=== PATIENT | female | born 1960 | race African-American/Black ===

== ENCOUNTER 2022-03-27 04:25 | Observation (INO) | payer OTHER ==
[2022-03-27] MEDS ORDERED: ONDANSETRON 4 MG/2 ML VIAL IVPUSH ONE (05:33)
[2022-03-27] MEDS ORDERED: ONDANSETRON 4 MG/2 ML VIAL ONE (05:38)
[2022-03-27 06:15] LABS: BASO % 0.5 % (0-2.0); EOS % 1.3 % (0-4.5); HEMATOCRIT 38.1 % (32.4-45.2); HEMOGLOBIN 12.7 GM/dL (10.7-15.3); LYMPH % 45.1 % (8-40); MCH 26.7 pg (25.7-33.7); MCHC 33.2 g/dl (32.0-36.0); MEAN CELL VOLUME 80.2 fl (80-96); MEAN PLT VOLUME 7.9 fl (7.5-11.1); MONO % 8.2 % (3.8-10.2); NEUT % 44.9 % (42.8-82.8); PLATELET COUNT 188 10^3/uL (134-434); RBC 4.76 M/mm3 (3.60-5.2); RDW 15.4 % (11.6-15.6); WHITE BLOOD COUNT 5.1 K/mm3 (4.0-10.0)
[2022-03-27 06:39] LABS: CALCIUM 9.9 mg/dL (8.5-10.1)
[2022-03-27 06:40] LABS: ALBUMIN 4.1 g/dl (3.4-5.0); MAGNESIUM 1.7 mg/dL (1.8-2.4)
[2022-03-27 06:43] LABS: CREATININE 0.7 mg/dL (0.55-1.3)
[2022-03-27 06:44] LABS: BILIRUBIN,TOTAL 0.4 mg/dL (0.2-1)
[2022-03-27] MEDS ORDERED: MAGNESIUM SULF 50% (8.12 MEQ/2 ML-1 GM VIAL) IVPB ONE ×2 (06:47→07:43)
[2022-03-27] MEDS ORDERED: MAGNESIUM SULFATE IN WATER 2 GM/50 ML IVPB IVPB ONE (06:50)
[2022-03-27] MEDS ORDERED: MECLIZINE HCL 25 MG TABLET (FP) PO ONE (08:02)
[2022-03-27] MEDS ORDERED: MECLIZINE HCL 25 MG TABLET (FP) ONE (08:05)
[2022-03-27] MEDS ORDERED: MECLIZINE HCL 25 MG TABLET (FP) PO PRN (12:01)
[2022-03-27] MEDS: ENOXAPARIN NA (PORCINE) 40 MG/0.4 ML DISP.SYRIN SQ SCH (12:05)
[2022-03-27] MEDS ORDERED: LACTATED RINGERS SOLUTION 1,000 ML/1,000 ML INFUS.BAG IV SCH (12:15)
[2022-03-27] MEDS: INSULIN SLIDING SCALE (NOVOLOG) 1 VIAL SQ SCH (17:42)
[2022-03-27] MEDS ORDERED: INSULIN (LEVEMIR) 100 UNITS/ML UNITS SQ SCH (22:00)
[2022-03-28 01:19] VITALS: BMI 32.8
[2022-03-28 06:18] VITALS: RESP 18
[2022-03-28] MEDS: INSULIN SLIDING SCALE (NOVOLOG) 1 VIAL SQ SCH ×2 (06:39→12:22)
[2022-03-28 07:28] LABS: INR 1.08 (0.83-1.09); PROTHROMBIN TIME (PATIENT) 12.4 SEC (9.7-13.0)
[2022-03-28 07:29] LABS: BASO % 0.5 % (0-2.0); EOS % 2.9 % (0-4.5); HEMATOCRIT 37.9 % (32.4-45.2); HEMOGLOBIN 12.4 GM/dL (10.7-15.3); LYMPH % 45.8 % (8-40); MCH 26.6 pg (25.7-33.7); MCHC 32.7 g/dl (32.0-36.0); MEAN CELL VOLUME 81.1 fl (80-96); MEAN PLT VOLUME 7.7 fl (7.5-11.1); MONO % 8.6 % (3.8-10.2); NEUT % 42.2 % (42.8-82.8); PLATELET COUNT 187 10^3/uL (134-434); RBC 4.67 M/mm3 (3.60-5.2); RDW 15.8 % (11.6-15.6); WHITE BLOOD COUNT 4.3 K/mm3 (4.0-10.0)
[2022-03-28 07:31] LABS: ACTIVATED PTT 27.3 SECONDS (25.2-36.5)
[2022-03-28 07:52] LABS: ALBUMIN 3.8 g/dl (3.4-5.0); BLOOD UREA NITROGEN 12.9 mg/dL (7-18); MAGNESIUM 1.8 mg/dL (1.8-2.4)
[2022-03-28 07:55] LABS: CREATININE 0.8 mg/dL (0.55-1.3); PHOSPHOROUS 2.9 mg/dL (2.5-4.9)
[2022-03-28 07:57] LABS: BILIRUBIN,TOTAL 0.5 mg/dL (0.2-1); TOT PROT 7.3 g/dl (6.4-8.2)
[2022-03-28 08:00] LABS: CHOLESTEROL 116 mg/dL (50-200); TRIGLYCERIDES 79 mg/dL (0-150)
[2022-03-28 08:01] LABS: LDL CHOLESTEROL (ONLY SJRH) 44 mg/dL (5-100)
[2022-03-28 08:04] LABS: HDL CHOLESTEROL 63 mg/dL (40-60)
[2022-03-28] MEDS: ENOXAPARIN NA (PORCINE) 40 MG/0.4 ML DISP.SYRIN SQ SCH (10:11)
[2022-03-28 13:22] VITALS: BP 113/62; PULSE 60; TEMP 97.2
== END 2022-03-28 13:33 | disposition home or self-care (01) ==
LOC: JER 04:25 → JERBED 07:43 → J4W 21:21
PROVIDERS: ADMIT Internal Medicine; ATTEND Internal Medicine
PROC: 3E023GC Introduction of Other Therapeutic Substance into Muscle, Percutaneous Approach (ICD-10-PCS; principal; 2022-03-27)
PROC: 3E0337Z Introduction of Electrolytic and Water Balance Substance into Peripheral Vein, Percutaneous Approach (ICD-10-PCS; 2022-03-27)
PROC: 3E033GC Introduction of Other Therapeutic Substance into Peripheral Vein, Percutaneous Approach (ICD-10-PCS; 2022-03-27)
DX: R42 Dizziness and giddiness (principal); R94.31 Abnormal electrocardiogram [ECG] [EKG]; E11.9 Type 2 diabetes mellitus without complications; I10 Essential (primary) hypertension; E78.5 Hyperlipidemia, unspecified; R11.0 Nausea; F25.9 Schizoaffective disorder, unspecified; E66.01 Morbid (severe) obesity due to excess calories; Z68.32 Body mass index [BMI] 32.0-32.9, adult; Z87.891 Personal history of nicotine dependence; Z79.4 Long term (current) use of insulin; Z88.0 Allergy status to penicillin; Z29.8 Encounter for other specified prophylactic measures
CPT/HCPCS: 0241U-QW; 36415; 70450-TC; 71045-TC-FY; 80053; 80061; 82330; 82962; 83036; 83735; 84100; 84484; 85025; 85610; 85730; 93005; 93010; 96361; 96372; 96374; 99285-25; G0378

== ENCOUNTER 2022-05-01 20:44 | Observation (INO) | payer OTHER ==
[2022-05-01] MEDS ORDERED: SODIUM CHLORIDE 1,000 ML IV SCH (20:45)
[2022-05-01 21:04] VITALS: BMI 32.2
[2022-05-01 21:21] LABS: BASO % 0.4 % (0-2.0); EOS % 2.2 % (0-4.5); HEMOGLOBIN 12.5 GM/dL (10.7-15.3); LYMPH % 37.9 % (8-40); MCH 27.3 pg (25.7-33.7); MCHC 33.8 g/dl (32.0-36.0); MEAN CELL VOLUME 80.8 fl (80-96); MEAN PLT VOLUME 7.4 fl (7.5-11.1); MONO % 7.5 % (3.8-10.2); PLATELET COUNT 186 10^3/uL (134-434); RBC 4.58 M/mm3 (3.60-5.2); WHITE BLOOD COUNT 5.9 K/mm3 (4.0-10.0)
[2022-05-01 21:38] LABS: INR 1.04 (0.83-1.09); PROTHROMBIN TIME (PATIENT) 12.1 SEC (9.7-13.0)
[2022-05-01 21:41] LABS: ACTIVATED PTT 27.6 SECONDS (25.2-36.5)
[2022-05-01 22:32] LABS: CALCIUM 9.2 mg/dL (8.5-10.1)
[2022-05-01 22:36] LABS: CREATININE 0.8 mg/dL (0.55-1.3)
[2022-05-01 22:38] LABS: BLOOD UREA NITROGEN 10.9 mg/dL (7-18)
[2022-05-01 22:39] LABS: BILIRUBIN,TOTAL 0.4 mg/dL (0.2-1)
[2022-05-02 00:13] LABS: URINE APPEARANCE CLEAR; URINE BILIRUBIN NEGATIVE (NEGATIVE); URINE COLOR YELLOW; URINE GLUCOSE (UA) NEGATIVE (NEGATIVE); URINE KETONE NEGATIVE (NEGATIVE); URINE LEUK ESTERASE NEGATIVE (NEGATIVE); URINE NITRITE NEGATIVE (NEGATIVE); URINE PROTEIN NEGATIVE (NEGATIVE); URINE UROBILINOGEN 0.2 mg/dL (0.2-1.0)
[2022-05-02] MEDS ORDERED: MECLIZINE HCL 25 MG TABLET (FP) PO PRN (02:57)
[2022-05-02] MEDS ORDERED: clonazePAM 0.5 MG TABLET PO PRN (03:56)
[2022-05-02 04:03] LABS: HEMATOCRIT 35.6 % (32.4-45.2); MCH 27.1 pg (25.7-33.7); MCHC 33.7 g/dl (32.0-36.0); MEAN CELL VOLUME 80.2 fl (80-96); MEAN PLT VOLUME 7.2 fl (7.5-11.1); PLATELET COUNT 165 10^3/uL (134-434); RBC 4.44 M/mm3 (3.60-5.2); RDW 16.1 % (11.6-15.6); WHITE BLOOD COUNT 5.1 K/mm3 (4.0-10.0)
[2022-05-02 04:27] LABS: ALBUMIN 3.8 g/dl (3.4-5.0); BLOOD UREA NITROGEN 9.2 mg/dL (7-18); CALCIUM 9.1 mg/dL (8.5-10.1)
[2022-05-02 04:30] LABS: CREATININE 0.7 mg/dL (0.55-1.3); PHOSPHOROUS 2.7 mg/dL (2.5-4.9)
[2022-05-02 04:32] LABS: BILIRUBIN,TOTAL 0.4 mg/dL (0.2-1); TOT PROT 7.4 g/dl (6.4-8.2)
[2022-05-02] MEDS ORDERED: INSULIN SLIDING SCALE (NOVOLOG) 1 VIAL SQ SCH (07:00)
[2022-05-02] MEDS ORDERED: ASPIRIN 81 MG CHEWABLE TABLETS ONE (07:29)
[2022-05-02] MEDS: ASPIRIN 81 MG CHEWABLE TABLETS PO SCH ×2 (07:34→09:07)
[2022-05-02] MEDS ORDERED: ACETAMINOPHEN 325 MG TABLET (FP) PO PRN (08:46)
[2022-05-02] MEDS ORDERED: MECLIZINE HCL 12.5 MG TABLET PO ONE (08:46)
[2022-05-02] MEDS ORDERED: LOSARTAN POTASSIUM 50 MG TABLET ONE (08:54)
[2022-05-02] MEDS ORDERED: SERTRALINE HCL 50 MG TABLET (FP) ONE (08:55)
[2022-05-02] MEDS ORDERED: ACETAMINOPHEN 325 MG TABLET (FP) ONE (08:55)
[2022-05-02] MEDS ORDERED: ENOXAPARIN NA (PORCINE) 40 MG/0.4 ML DISP.SYRIN SQ ONE (08:55)
[2022-05-02] MEDS ORDERED: MECLIZINE HCL 12.5 MG TABLET ONE ×2 (08:55→09:05)
[2022-05-02] MEDS ORDERED: LOSARTAN POTASSIUM 25 MG TABLET ONE (08:57)
[2022-05-02] MEDS ORDERED: PATIENT'S OWN MEDICATION (NON-FORMULARY) (Clonazepam [Klonopin] 1 MG Tablet) PO SCH (10:00)
[2022-05-02] MEDS ORDERED: LOSARTAN POTASSIUM 25 MG TABLET PO SCH (10:00)
[2022-05-02] MEDS ORDERED: SERTRALINE HCL 50 MG TABLET (FP) PO SCH (10:00)
[2022-05-02] MEDS ORDERED: ENOXAPARIN NA (PORCINE) 40 MG/0.4 ML DISP.SYRIN SQ SCH (10:00)
[2022-05-02 13:42] VITALS: BP 128/68; PULSE 65; RESP 16; TEMP 97
[2022-05-02] MEDS ORDERED: ATORVASTATIN CA 20 MG TABLET (FP) PO SCH (22:00)
[2022-05-02] MEDS ORDERED: ARIPiprazole 15 MG TABLET PO SCH (22:00)
== END 2022-05-02 15:00 | disposition home or self-care (01) ==
LOC: JER 20:44 → JERBED 21:45 → INTOOBSV 21:45 → UNDOADMOB 21:45 → JERBED 05-02 07:34
PROVIDERS: ADMIT Internal Medicine; ATTEND Internal Medicine
PROC: 3E023GC Introduction of Other Therapeutic Substance into Muscle, Percutaneous Approach (ICD-10-PCS; principal; 2022-05-02)
DX: M54.12 Radiculopathy, cervical region (principal); E11.9 Type 2 diabetes mellitus without complications; F41.9 Anxiety disorder, unspecified; I10 Essential (primary) hypertension; E78.5 Hyperlipidemia, unspecified; F25.9 Schizoaffective disorder, unspecified; R20.2 Paresthesia of skin; R20.0 Anesthesia of skin; Z86.73 Personal history of transient ischemic attack (TIA), and cerebral infarction without residual deficits; Z88.0 Allergy status to penicillin; E66.01 Morbid (severe) obesity due to excess calories; Z68.21 Body mass index [BMI] 21.0-21.9, adult
CPT/HCPCS: 0241U-QW; 36415; 70450-TC; 80053; 80061; 81003; 82550; 82962; 83036; 83735; 84100; 84439; 84443; 84484; 85025; 85027; 85610; 85730; 86850; 86900; 86901; 93005; 93010; 96372; 99285-25; G0378

== ENCOUNTER 2022-12-31 13:26 | Observation (INO) | payer OTHER ==
[2022-12-31 13:50] VITALS: BMI 27.3
[2022-12-31] MEDS ORDERED: ONDANSETRON 4 MG/2 ML VIAL IVPUSH ONE (14:11)
[2022-12-31] MEDS ORDERED: SODIUM CHLORIDE 500 ML IV STA (14:11)
[2022-12-31] MEDS ORDERED: ACETAMINOPHEN 1000 MG/100 ML BAG IVPB ONE (14:11)
[2022-12-31] MEDS ORDERED: ONDANSETRON 4 MG/2 ML VIAL ONE (14:30)
[2022-12-31] MEDS ORDERED: ACETAMINOPHEN INJECTION 100 ML IVPB ONE (14:42)
[2022-12-31 15:24] LABS: BASO % 0.7 % (0-2.0); EOS % 1.2 % (0-4.5); HEMATOCRIT 38.6 % (32.4-45.2); HEMOGLOBIN 12.6 GM/dL (10.7-15.3); MCH 27.5 pg (25.7-33.7); MCHC 32.8 g/dl (32.0-36.0); MEAN CELL VOLUME 83.8 fl (80-96); MEAN PLT VOLUME 7.4 fl (7.5-11.1); MONO % 9.1 % (3.8-10.2); PLATELET COUNT 243 10^3/uL (134-434); RDW 15.4 % (11.6-15.6); WHITE BLOOD COUNT 4.8 K/mm3 (4.0-10.0)
[2022-12-31 15:48] LABS: POTASSIUM 4.1 mmol/L (3.5-5.1)
[2022-12-31 15:51] LABS: ALBUMIN 4.3 g/dl (3.4-5.0); BLOOD UREA NITROGEN 14.4 mg/dL (7-18)
[2022-12-31 15:53] LABS: CREATININE 0.9 mg/dL (0.55-1.3)
[2022-12-31 15:55] LABS: BILIRUBIN,TOTAL 0.7 mg/dL (0.2-1)
[2022-12-31] MEDS ORDERED: MECLIZINE HCL 25 MG TABLET (FP) PO ONE (18:05)
[2022-12-31] MEDS ORDERED: MECLIZINE HCL 25 MG TABLET (FP) ONE (18:43)
[2022-12-31] MEDS ORDERED: METOCLOPRAMIDE HCL INJECTION 10 MG/2 ML VIAL IVPB ONE (20:01)
[2022-12-31] MEDS ORDERED: METOCLOPRAMIDE HCL INJECTION 10 MG/2 ML VIAL ONE (20:08)
[2023-01-01] MEDS ORDERED: METOCLOPRAMIDE HCL INJECTION 10 MG/2 ML VIAL IVPUSH PRN (02:13)
[2023-01-01] MEDS ORDERED: ACETAMINOPHEN 325 MG TABLET (FP) PO PRN (02:13)
[2023-01-01] MEDS ORDERED: ONDANSETRON 4 MG/2 ML VIAL IVPUSH PRN (02:13)
[2023-01-01] MEDS ORDERED: SODIUM CHLORIDE 1,000 ML IV SCH ×2 (02:15→05:00)
[2023-01-01] MEDS ORDERED: MECLIZINE HCL 25 MG TABLET (FP) PO PRN ×2 (02:19→03:32)
[2023-01-01 07:16] VITALS: BP 120/54; PULSE 71; RESP 18; TEMP 98.2
[2023-01-01 08:21] LABS: CALCIUM 9.2 mg/dL (8.5-10.1)
[2023-01-01 08:22] LABS: ALBUMIN 3.9 g/dl (3.4-5.0); BLOOD UREA NITROGEN 13.8 mg/dL (7-18); MAGNESIUM 1.7 mg/dL (1.8-2.4)
[2023-01-01 08:23] LABS: HEMATOCRIT 36.7 % (32.4-45.2); HEMOGLOBIN 11.7 GM/dL (10.7-15.3); MEAN CELL VOLUME 84.3 fl (80-96); MEAN PLT VOLUME 7.4 fl (7.5-11.1); PLATELET COUNT 214 10^3/uL (134-434); RBC 4.35 M/mm3 (3.60-5.2); RDW 14.8 % (11.6-15.6); WHITE BLOOD COUNT 4.3 K/mm3 (4.0-10.0)
[2023-01-01 08:25] LABS: CREATININE 0.8 mg/dL (0.55-1.3); PHOSPHOROUS 3.2 mg/dL (2.5-4.9)
[2023-01-01 08:26] LABS: BILIRUBIN,TOTAL 0.9 mg/dL (0.2-1); TOT PROT 7.9 g/dl (6.4-8.2)
[2023-01-01] MEDS ORDERED: clonazePAM 0.5 MG TABLET PO SCH (10:00)
[2023-01-01] MEDS ORDERED: SERTRALINE HCL 50 MG TABLET (FP) PO SCH (10:00)
[2023-01-01] MEDS ORDERED: LOSARTAN POTASSIUM 25 MG TABLET PO SCH (10:00)
[2023-01-01] MEDS ORDERED: ENOXAPARIN NA (PORCINE) 40 MG/0.4 ML DISP.SYRIN SQ SCH (10:00)
[2023-01-01] MEDS ORDERED: ARIPiprazole 15 MG TABLET PO SCH (22:00)
[2023-01-01] MEDS ORDERED: ATORVASTATIN CA 20 MG TABLET (FP) PO SCH (22:00)
== END 2023-01-01 09:57 | disposition left against medical advice (07) ==
LOC: JERFT 13:26 → JER 13:26 → JERBED 18:36
PROVIDERS: ADMIT Internal Medicine; ATTEND Student in an Organized Health Care Education/Training Program
PROC: 3E033NZ Introduction of Analgesics, Hypnotics, Sedatives into Peripheral Vein, Percutaneous Approach (ICD-10-PCS; principal; 2022-12-31)
PROC: 3E033GC Introduction of Other Therapeutic Substance into Peripheral Vein, Percutaneous Approach (ICD-10-PCS; 2022-12-31)
PROC: 3E0337Z Introduction of Electrolytic and Water Balance Substance into Peripheral Vein, Percutaneous Approach (ICD-10-PCS; 2022-12-31)
DX: R42 Dizziness and giddiness (principal); R26.81 Unsteadiness on feet; R51.9 Headache, unspecified; I10 Essential (primary) hypertension; R77.8 Other specified abnormalities of plasma proteins; E78.5 Hyperlipidemia, unspecified; F41.8 Other specified anxiety disorders; R73.03 Prediabetes; Z29.89 Encounter for other specified prophylactic measures; Z90.49 Acquired absence of other specified parts of digestive tract; Z99.89 Dependence on other enabling machines and devices; Z86.73 Personal history of transient ischemic attack (TIA), and cerebral infarction without residual deficits; Z88.0 Allergy status to penicillin
CPT/HCPCS: 0241U-QW; 36415; 70450-TC; 71046-TC-FY; 71250-TC; 80053; 82962; 83690; 83735; 84100; 84443; 84484; 85025; 85027; 93005; 93010; 96361; 96374; 96375; 99285-25; G0378

== ENCOUNTER 2023-06-03 19:58 | Emergency (ER) | payer OTHER ==
[2023-06-03 20:04] VITALS: RESP 18; TEMP 98.5; BMI 32.7
[2023-06-03] MEDS ORDERED: morphine SULFATE 4 MG/ML VIAL ONE (21:00)
[2023-06-03] MEDS: morphine SULFATE 4 MG/ML VIAL IVPUSH ONE (21:04)
[2023-06-03 21:08] VITALS: PULSE 73
[2023-06-03 21:08] LABS: BASO % 0.7 % (0-2.0); EOS % 1.8 % (0-4.5); HEMATOCRIT 40.2 % (32.4-45.2); HEMOGLOBIN 13.4 GM/dL (10.7-15.3); LYMPH % 42.1 % (8-40); MCH 27.5 pg (25.7-33.7); MCHC 33.3 g/dl (32.0-36.0); MEAN CELL VOLUME 82.5 fl (80-96); MEAN PLT VOLUME 7.1 fl (7.5-11.1); NEUT % 47.4 % (42.8-82.8); PLATELET COUNT 201 10^3/uL (134-434); RBC 4.87 M/mm3 (3.60-5.2); RDW 15.4 % (11.6-15.6); WHITE BLOOD COUNT 5.3 K/mm3 (4.0-10.0)
[2023-06-03 21:15] LABS: INR 1.04 (0.83-1.09); PROTHROMBIN TIME (PATIENT) 12.1 SEC (9.7-13.0)
[2023-06-03 21:17] LABS: ACTIVATED PTT 26.5 SECONDS (25.2-36.5)
[2023-06-03 21:27] LABS: CHLORIDE 106 mmol/L (98-107); POTASSIUM 3.9 mmol/L (3.5-5.1); SODIUM 140 mmol/L (136-145)
[2023-06-03 21:28] LABS: CALCIUM 9.9 mg/dL (8.5-10.1)
[2023-06-03 21:29] LABS: ALBUMIN 4.3 g/dl (3.4-5.0); ANION GAP 7 mmol/L (4-13); BLOOD UREA NITROGEN 12.7 mg/dL (7-18); CO2 28 mmol/L (21-32); GLUCOSE,RANDOM 100 mg/dL (74-106)
[2023-06-03 21:32] LABS: CREATININE 0.9 mg/dL (0.55-1.3); SGOT/AST 40 U/L (15-37); SGPT/ALT 60 U/L (13-61)
[2023-06-03 21:34] LABS: BILIRUBIN,TOTAL 0.5 mg/dL (0.2-1); TOT PROT 8.8 g/dl (6.4-8.2)
[2023-06-03 21:35] LABS: ALK PHOS 153 U/L (45-117)
[2023-06-03 21:42] LABS: ERYTHROCYTE SEDIMENTATION RATE 14 mm/hr (0-30)
[2023-06-03] MEDS ORDERED: KETOROLAC TROMETHAMINE 15 MG/ML VIAL ONE (21:51)
[2023-06-03 21:58] VITALS: BP 155/76
[2023-06-03] MEDS: KETOROLAC TROMETHAMINE 15 MG/ML VIAL IVPUSH ONE (21:59)
[2023-06-03] MEDS ORDERED: MECLIZINE HCL 25 MG TABLET (FP) ONE (22:51)
[2023-06-03] MEDS: MECLIZINE HCL 25 MG TABLET (FP) PO ONE (22:56)
[2023-06-04] MEDS ORDERED: METHOCARBAMOL 500 MG TABLET ONE (00:01)
[2023-06-04] MEDS: METHOCARBAMOL 500 MG TABLET PO ONE ×2 (00:04→00:08)
== END 2023-06-04 00:36 | disposition home or self-care (01) ==
LOC: JER 19:58
PROC: 3E033NZ Introduction of Analgesics, Hypnotics, Sedatives into Peripheral Vein, Percutaneous Approach (ICD-10-PCS; principal; 2023-06-03)
PROC: 3E033GC Introduction of Other Therapeutic Substance into Peripheral Vein, Percutaneous Approach (ICD-10-PCS; 2023-06-03)
DX: M25.511 Pain in right shoulder (principal); R07.9 Chest pain, unspecified
CPT/HCPCS: 36415; 71045-TC-FY; 73030-TC-RT-FY; 80053; 84484; 85025; 85610; 85651; 85730; 86140; 93005; 93010; 99285-25

== ENCOUNTER 2023-06-17 12:49 | Emergency (ER) | payer OTHER ==
[2023-06-17 12:54] VITALS: BP 124/52; PULSE 83; RESP 18; TEMP 97.2; BMI 32.7
[2023-06-17] MEDS ORDERED: KETOROLAC TROMETHAMINE 30 MG/1 ML VIAL ONE (13:47)
[2023-06-17] MEDS ORDERED: LIDOCAINE 4% PATCH TP ONE (13:47)
[2023-06-17] MEDS: LIDOCAINE 4% PATCH TP ONE (13:52)
[2023-06-17] MEDS: KETOROLAC TROMETHAMINE 30 MG/1 ML VIAL IM ONE (13:52)
[2023-06-17] MEDS ORDERED: LIDOCAINE PATCH REMOVAL MC SCH (22:00)
== END 2023-06-17 14:11 | disposition home or self-care (01) ==
LOC: JERFT 12:49
PROC: 3E0233Z Introduction of Anti-inflammatory into Muscle, Percutaneous Approach (ICD-10-PCS; principal; 2023-06-17)
DX: M25.511 Pain in right shoulder (principal)
CPT/HCPCS: 99284-25